=== PATIENT | male | born 1965 | race Caucasian/White ===

== ENCOUNTER 2024-05-03 09:40 | Outpatient (CLI) | payer OTHER ==
[~2024-05-03 09:40] MED LIST: GADOTERATE MEGLUMINE 10 MMOL/20 ML VIAL ONE
--- NOTE | 2024-05-03 10:30 | XRAY Report ---
PROCEDURE: Eye Foreign Body INDICATIONS: SCREENING FOR MRI TECHNIQUE: A single view of the orbits was acquired. COMPARISON: None FINDINGS: Bones: No metallic foreign body in the orbits. Sequelae of dental work. Soft tissues: Unremarkable IMPRESSION: No metallic foreign body in the orbits. Reviewed by: Sylvester Quintana MD on 05/03/2024 10:28 AM PDT Approved by: Sylvester Quintana MD on 05/03/2024 10:28 AM PDT Station ID: [id number]
[2024-05-03 10:34] LABS: CREATININE 0.8 mg/dL (0.6-1.3)
--- NOTE | 2024-05-03 13:07 | MRI Report ---
PROCEDURE: Pelvis W/WO INDICATIONS: BENIGN PROSTATIC HYPERPLASIA CONTRAST: 20.3ml Clariscan TECHNIQUE: Coronal ultra fast SE, axial T1 FSE with fat saturation, 3-plane nonbreath-hold T2 FSE. After the ad ministration of contrast, dynamic axial, delayed axial and coronal ultra fast GE or 2-D spoiled GE wi th fat saturation through the pelvis. Optional diffusion weighted imaging and ADC may be performed. COMPARISON: None. FINDINGS: Image quality: Diffusion weighted and dynamic contrast enhanced images are diagnostic. Prostate: Gland size is 6.7 x 6.2 x 5.5 cm; ellipsoid gland volume is 118 mL. PSA Density: PSA not p rovided for calculation. Mild prostate hypertrophy of the transition zone, with encapsulated and par tially encapsulated nodules. No PI-RADS 3-5 lesions. Genitourinary system: Bladder wall thickness is normal. Distal ureters are non distended. Bowel and peritoneum: No pathologic free pelvic fluid. Inferior colon and small bowel loops are nor mal in caliber. Colonic diverticulosis without evidence of diverticulitis. Nodes and vessels: No pelvic or inguinal adenopathy by size criteria. Iliac vessels are normal in c aliber. Soft tissues: Moderate left inguinal hernia containing fat. Bones: Bone marrow demonstrates normal overall signal. No suspicious bony lesions. IMPRESSION: No PI-RADS 3-5 lesions. No aggressive osseous abnormality. No pelvic adenopathy by size criteria. Reviewed by: Sergio Bermudez MD on 05/03/2024 1:06 PM PDT Approved by: Sergio Bermudez MD on 05/03/2024 1:06 PM PDT Station ID: [id number]
[2024-05-03] MEDS: GADOTERATE MEGLUMINE 10 MMOL/20 ML VIAL IVP ONE (17:49)
== END 2024-05-03 09:41 | disposition home or self-care (01) ==
LOC: DI 09:40
PROVIDERS: ATTEND Student in an Organized Health Care Education/Training Program
DX: N40.0 Benign prostatic hyperplasia without lower urinary tract symptoms (principal); R97.20 Elevated prostate specific antigen [PSA]
CPT/HCPCS: 36415; 70030; 72197; 82565; A9575